=== PATIENT | female | born 1985 | race Caucasian/White ===

== ENCOUNTER 2024-10-11 23:30 | Observation (INO) | payer OTHER, SELFPAY ==
[2024-10-11 19:21] VITALS: BP 123/84
[2024-10-11 19:40] VITALS: BMI 28.7
[2024-10-11 19:46] VITALS: BP 140/98
[2024-10-11 19:46] LABS: Glucose - Point of Care 103 mg/dl (70-99)
[2024-10-11 19:55] LABS: % Eosinophils 1.6 % (0-6); % Immature Granulocytes 0.3 % (0-0.5); % Lymphocytes 25.2 % (20.5-51.1); % Monocytes 6.3 % (1.7-9.3); % Neutrophils 65.6 % (42.2-75.2); Absolute Basophils 0.1 10^3/uL (0-0.2); Absolute Eosinophils 0.2 10^3/uL (0-0.7); Absolute Lymphocytes 2.9 10^3/uL (1.2-3.4); Absolute Monocytes 0.7 10^3/uL (0.1-0.6); Absolute Neutrophils 7.6 10^3/uL (1.4-6.5); Hematocrit 43.3 % (37.0-47.0); Hemoglobin 14.4 g/dL (12.0-16.0); Mean Corp Hgb Conc. 33.3 g/dL (33.0-37.0); Mean Corpuscular Hgb 28.6 pg (27.0-31.0); Mean Corpuscular Volume 85.9 fL (81.0-99.0); Mean Platelet Volume 9.9 fL (7.4-10.4); Nucleated Red Blood Cells % 0 %; Platelet Count 346 10^3/uL (130-400); Red Blood Cell Count 5.04 10^6/uL (4.20-5.40); Red Cell Dist. Width 12.5 % (11.5-14.5); White Blood Cell Count 11.6 10^3/uL (4.8-10.8)
[2024-10-11 20:02] LABS: INR 0.92; PT 12.8 Sec (11.4-14.6)
[2024-10-11 20:07] LABS: ALT (SGPT) 22 U/L (0-35); AST (SGOT) 23 U/L (14-36); Albumin 4.7 g/dl (3.5-5.0); Alkaline Phosphatase 61 U/L (38-126); Blood Urea Nitrogen 11 mg/dl (7-17); Calcium 9.8 mg/dl (8.4-10.2); Carbon Dioxide 28 mmol/L (22-30); Chloride 101 mmol/L (98-107); Estimated Creatinine Clearance 119 ml/min; Glucose 111 mg/dl (70-99); Potassium 4.1 mmol/L (3.5-5.1); Sodium 136 mmol/L (135-145); Total Bilirubin 0.6 mg/dl (0.2-1.3); Total Protein 7.4 g/dl (6.3-8.2); eGFR > 60.00
[2024-10-11 20:17] LABS: Troponin I < 0.012 ng/ml
[2024-10-11 20:35] VITALS: BP 125/83
[2024-10-11 20:41] LABS: Urine Albumin Negative (Neg - Trace); Urine Bilirubin Negative (Negative); Urine Character Clear (Clear); Urine Color Yellow; Urine Glucose Negative (Negative); Urine Ketone Negative (Negative); Urine Leukocyte Trace (Negative); Urine Nitrite Negative (Negative); Urine Occult Blood Negative (Negative); Urine Specific Gravity 1.005 (<1.030); Urine Urobilinogen Negative (Neg - 1+)
[2024-10-11 20:50] LABS: Amphetamines Negative (Negative); Barbiturates Positive (Negative); Benzodiazepines Negative (Negative); Buprenorphine Negative (Negative); Cocaine Negative (Negative); Marijuana Negative (Negative); Methadone Negative (Negative); Methamphetamines Negative (Negative); Opiates Negative (Negative); Phencyclidine Negative (Negative); Tricyclic Antidepressants Negative (Negative)
[2024-10-11 20:59] LABS: Urine Red Blood Cell 0-2 /HPF (0-2); Urine Squamous Cell 21-25 /LPF (Few)
[2024-10-11 21:00] VITALS: BP 123/82
--- NOTE | 2024-10-11 21:01 | ED.CVA ---
History of Present Illness
General
Chief Complaint: CVA/TIA Symptoms
Time Seen by Provider: 10/11/24 19:54
Onset of Stroke Symptoms
Onset of symptoms known: No
Time pt last seen normal is known: No
History of Present Illness
History of Present Illness:
Patient is a 39-year-old woman presenting to the emergency department with weakness. On arrival patient was made a stroke alert. Patient is unable to provide clear history but states that 2 days ago she had some difficulty breathing and some
nausea and dizziness as well as some difficulty with concentration. Today around either 1 or 2 PM she had sudden onset of left arm and left leg weakness and numbness tingling. Has been ongoing. She does state that a few weeks ago her left leg had
weakness but that resolved. She does state that she is also been having chest pain and difficulty breathing. Per chart review patient was seen here in May 2023 for left-sided weakness had a stroke workup and ultimately was thought to have a
complex migraine. After my evaluation she denies any headache or pressure.
Past History
Past History
ED Past Medical History: None
ED Past Surgical History: None
Patient has exhibited threatening behavior?: No
Social History
Tobacco: Non-smoker
Phy Exam
Physical Exam
Physical Exam:
GENERAL: in no acute distress
HEENT: normocephalic, extraocular movements intact, moist oral mucosa
NECK: normal inspection
RESPIRATORY: no respiratory distress, clear to auscultation bilaterally
CARDIOVASCULAR: regular rate and rhythm
ABDOMEN/: soft, non-distended, non-tender to palpation, no rebound or guarding
EXTREMITIES: non-tender, no edema/swelling
NEUROLOGIC: alert and oriented x 3, cranial nerves II-XII intact, right upper extremity strength 5/5, left upper extremity strength 4/5, right lower extremity strength 5/5, left lower extremity strength 3/5, normal sensation to light touch, normal
[id number] and svan-yh-ezng, gait not tested formally
SKIN: warm
NIH Stroke Score
Level of Consciousness: 0 - Alert
LOC questions: 0-Answers both correctly
LOC Commands: 0-Performs both correctly
Best Gaze: 0-Normal
Visual [place]: 0=Normal, no visual loss
Facial palsy: 0=Normal, symmetrical
Motor - Right Arm: 0=No drift 10 seconds
Motor - Left Arm: 1=Drift < 10 seconds
Motor - Right Le-No drift 5 seconds
Motor - Left Le-Drift < 5 seconds
Limb Ataxia: 0-Absent
Sensation: 1-Mild loss
Best Language: 0-No aphasia
Dysarthria: 0-Normal
Extinction and Inattention: 0-No abnormality
Total Score:: 3
Course
Orders/Labs/Results
Orders:
Orders
10/11/24 19:32
Electrocardiogram (*1) Urgent
Reason for Study: Other
Other Reason for Exam: Possible Stroke
Bedside Glucose- Treatment ONCE
Cardiac Monitoring- Treatment ONCE
EKG- Treatment ONCE
IV Insert/Care/Rem.- Treatment PRN
Vital Signs As Directed
Frequency: Other
Weight As Directed
Frequency: Once
Comment: ZERO STRETCHER SCALE FOR ACCURATE WEIGHT
O2 Therapy [RESP] Urgent
Titrate/Wean O2 to maintain O2 sat greater than (%): 93
Special Instructions: MAINTAIN CONTINUOUS O2 SATS > OR = 93%
10/11/24 19:44
Complete Blood Count/With Diff Urgent
Comprehensive Metabolic Panel Urgent
PTT Urgent
Prothrombin Time Urgent
Troponin I Urgent
Urinalysis Reflex To Culture Urgent
Date Specimen was Collected: 10/11/24
Time Specimen was Collected: 19:32
Urine Microscopic Reflex Cult Urgent
10/11/24 19:54
CT HEAD STROKE ALERT W/o Cont Stat
Comment:
Reason For Exam: left weakness
CT HEAD/NECK ANG STROKE ALERT Stat
Comment:
Reason For Exam: left weakness
Chest/Abd Angio w/wo Contrast CT [CT Chest/abd Angio W/wo Iv Con] Stat
Comment:
Reason For Exam: chest pain, left sided weakness
10/11/24 20:36
Drug Screen, Urine [Urine Drug Abuse Screen] Urgent
Date Specimen was Collected: 10/11/24
Time Specimen was Collected: 20:12
Abnormal Lab Results
10/11/24 10/11/24
19:44 20:36
WBC 11.6 H 10^3/uL
(4.8-10.8)
Absolute Neuts (auto) 7.6 H 10^3/uL
(1.4-6.5)
Absolute Monos (auto) 0.7 H 10^3/uL
(0.1-0.6)
Glucose 111 H mg/dl
(70-99)
Leukocyte Esterase Rfl Trace A
(Negative)
Ur Barbiturates Screen Positive H
(Negative)
POC Glucose 103 H mg/dl
(70-99)
10/11/24 19:44
10/11/24 19:44
Vital Signs
Initial and Last Documented VS:
Initial Vital Signs
Temp Pulse Resp BP Pulse Ox
98.9 F 84 20 123/84 99
10/11/24 19:21 10/11/24 19:21 10/11/24 19:21 10/11/24 19:21 10/11/24 19:21
Last Documented Vital Signs
Temp Pulse Resp BP Pulse Ox
98.9 F 90 20 123/82 97
10/11/24 19:21 10/11/24 21:00 10/11/24 19:21 10/11/24 21:00 10/11/24 21:00
MDM/Problems Addressed
Differential Diagnosis Includes:
Patient is a 39-year-old woman presenting to the emergency department left-sided weakness as well as chest pain and shortness of breath. On exam here patient with slight drift in left upper and lower extremity. Concern for stroke versus aortic
dissection given the ongoing chest pain. Consider complex migraine the patient without any headache symptoms. Will proceed with stroke alert scans as well as dissection protocol. Will check blood work. I discussed with on-call neurology Dr. Callahan
who also recommended adding UDS possible consideration for multiple sclerosis as well given the waxing and waning symptoms over a period of time.
*Critical Care Note
Total Time (30-74mins, 75-104mins- exclusive of procedures): Not Applicable
Update Note
Update Note:
On reevaluation patient is ambulatory to the bathroom however stating that she has some residual left upper extremity weakness. Her chest pain has resolved. Blood work is unremarkable. CT scan with no acute changes. Patient would benefit from
admission for further evaluation. Discussed with hospitalist who excepted patient to their service
ED Attending Note
-
Portions of this chart may have been created with voice recognition software.� Occasional wrong word or��sound alike� substitutions may have occurred due to the inherent limitations of voice recognition software.
Discharge Plan
Departure
Patient Disposition: Admit
Date of Disposition: 10/11/24
Time of Disposition: 22:21
Presentation/result/management discussed w/ accepting MD/DO: Hospitalist
Discharge Problem:
Acute left-sided weakness
Prescriptions:
No Action
budesonide-formoterol [Symbicort] 160-4.5 mcg/actuation Hfa Aerosol Inhaler
2 inh inhalation R BIDPRN PRN (Reason: sob) Qty: 0
desogestrel-ethinyl estradiol [Apri] 0.15-0.03 mg Tablet
1 tab PO HS
cetirizine 10 mg Tablet
10 mg PO DAILYPRN PRN (Reason: allergies)
olopatadine 0.1 % Drops
1 drp BOTH EYES BIDPRN PRN (Reason: allergies)
albuterol sulfate 90 mcg/actuation Hfa Aerosol Inhaler
2 puff INHALATION R Q6HPRN PRN (Reason: sob)
ipratropium bromide 42 mcg (0.06 %) [place],Non-Aerosol
2 spray INTRANASAL TIDPRN PRN (Reason: allergies)
fluticasone propionate [Flonase] 50 mcg/actuation [place],Suspension
2 spray INTRANASAL BIDPRN PRN (Reason: allergies)
Referrals:
Kaden Ragsdale CRNP [Family Provider] -
Interventions
Interventions:
*General Assessment Last Done: 10/11/24 19:21
ED- Fall Risk Assessment Last Done: 10/11/24 19:21
*ED COVID-19 Vaccine History Last Done: 10/11/24 19:21
ED- Cardiac Assessment Last Done: 10/11/24 19:49
ED- Neurological Assessment Last Done: 10/11/24 19:49
ED- Pulmonary Assessment Last Done: 10/11/24 19:49
Discharge Date and Time
Print Language: UZBEK
[2024-10-11 22:00] VITALS: BP 121/81
--- NOTE | 2024-10-11 22:26 | HPS.HSE ---
Family Physician
-
Family Physician: LIOR Tavares
Chief Complaint
-
CVA/TIA symptoms
History of Present Illness
Patient is a 39-year-old female with past medical history significant for asthma who presented to [facility] ED for evaluation of acute onset left sided weakness with numbness today. Patient reports having left sided weakness associated with
'tingling' in left arm and left leg. She also states she has had intermittent shortness of breath when lying down and believes that is from her asthma. She does states she has had dizziness but unable to confirm or deny if associated with left-side
weakness and numbness. Patient reports an episode of nausea earlier today. Denies any chest pain, cough, emesis, fever or chills.
Medical History
Past Medical History
Past Medical History: Reports Other
Additional Past Medical History:
asthma
allergic rhinitis
Past Surgical History: Reports Other
Additional Past Surgical History:
teeth implants (08/2024)
rhinoplasty (03/2024)
Social History
Tobacco: Non-smoker
Alcohol: None
Drug: None
Living: With Family
Employment: Employed
Family History
Family History: Not pertinent
Allergies / Home Medications
Allergies reflects when Allergies were last updated in [facility].
Home Medications with original date entered in [facility]
Allergy/Medication List:
Allergies
Allergy/AdvReac Type Severity Reaction Status Date / Time
Dawes [employer]ivatives Allergy Anaphylaxis Verified 10/11/24 19:42
seeds Allergy Anaphylaxis Uncoded 10/11/24 19:42
Home Medications
budesonide-formoterol HFA 160 mcg-4.5 mcg/actuation aerosol inhaler (Symbicort) 2 inh inhalation R BIDPRN PRN sob ##0 05/30/23
albuterol sulfate 90 mcg/actuation aerosol inhaler 2 puff inhalation R Q6HPRN PRN sob 10/11/24
cetirizine 10 mg tablet 10 mg PO DAILYPRN PRN allergies 10/11/24
desogestrel 0.15 mg-ethinyl estradiol 0.03 mg tablet (Apri) 1 tab PO HS 10/11/24
fluticasone propionate 50 mcg/actuation nasal spray,suspension 2 spray intranasal BIDPRN PRN allergies 10/11/24
ipratropium bromide 42 mcg (0.06 %) nasal spray 2 spray intranasal TIDPRN PRN allergies 10/11/24
olopatadine 0.1 % eye drops 1 drp BOTH EYES BIDPRN PRN allergies 10/11/24
Review of Systems
-
History Source: Patient
Constitutional: Reports No Symptoms
EENT: Reports No Symptoms
Respiratory: Reports Other (intermittent shortness of breath)
Cardiac: Reports No Symptoms
Abdomen/GI: Reports No Symptoms
: Reports No Symptoms
Musculoskeletal: Reports No Symptoms
Skin: Reports No Symptoms
Neurological: Reports Dizzy, Weakness (left side) and Numbness (left side )
Endocrine: Reports No Symptoms
Hematologic/Lymphatic: Reports No Symptoms
Psych: Reports No Symptoms
Physical Exam
Vital Signs
Vital Signs
Temp Pulse Resp BP Pulse Ox
98.9 F 90 20 123/82 97
10/11/24 19:21 10/11/24 21:00 10/11/24 19:21 10/11/24 21:00 10/11/24 21:00
Physical Exam
General: Well Developed, Well Nourished, No Apparent Distress, Comfortable and Conversant
HEENT: NormoCephalic, Moist mucous membranes, Atraumatic, PERRLA, [place] Conjunctivae, Nose Appears Normal and Ears Appear Normal
Respiratory: Clear and Non Labored Respirations
Cardiac: S1/S2 and Regular Rhythm; No Murmur, Rub or Gallop
Breast: Deferred by me
GI: Soft, Non Tender, Non Distended and Normal Bowel Sounds; No Organomegaly
Rectal: Deferred by Provider
Genito-urinary: Deferred by me
Musculoskeletal: No Clubbing, No Cyanosis and No Edema
Skin: Warm and IV/Catheter Site; No Rash
Neuro: Awake, Alert, AO x 3 and Nonfocal/grossly intact
Hematologic/Lymphatic: No Lymphadenopathy
Psych: Calm
Laboratory Results
-
10/11/24 19:44
10/11/24 19:44
Laboratory Results
PT 12.8 Sec (11.4-14.6) 10/11/24 19:44
INR 0.92 10/11/24 19:44
APTT 28.0 Sec (23.4-35.0) 10/11/24 19:44
Total Bilirubin 0.6 mg/dl (0.2-1.3) 10/11/24 19:44
AST 23 U/L (14-36) 10/11/24 19:44
ALT 22 U/L (0-35) 10/11/24 19:44
Alkaline Phosphatase 61 U/L (38-126) 10/11/24 19:44
Troponin I < 0.012 ng/ml 10/11/24 19:44
Data Reviewed
-
CT Scan: Report Reviewed by me (Head CT, Head/Neck CTA and Chest/Adb CTA)
Medical Tests (Nuc Med, Echo, EKG etc): Report Reviewed by me (EKG: NORMAL SINUS RHYTHM)
Lab Data: Labs Reviewed by me
Impression/Plan
-
IMPRESSION/PLAN:
#CVA/TIA symptoms: Left sided weakness and numbness associated with dizziness
Headt CT: Unremarkable unenhanced head CT exam
ASPECT score: 10
Head/Neck CTA: No acute pathology identified. No evidence of M1 nor M2 occlusion. No focal stenosis.
Chest/Abd: No acute pathology of the chest and abdomen identified. No evidence of aortic dissection
Hepatic fatty infiltration.
Mild right middle lobe atelectasis versus scarring.
UDS positive for barbiturates, patient denies any recreational drug use
- Admit to telemetry for observation
- Neuro Consult
- MRI
- NIH and nuerochecks
#Asthma
#Allergic Rhinitis
- Continue home medications
Code Status: Full Code
DVT Prophylaxis: SCDs
[2024-10-11 23:00] VITALS: BP 112/92
--- NOTE | 2024-10-11 23:00 | W.PN.UPDATE ---
Update Note
Progress Note Update
This is an addendum to the H&P written by Sonia Claudio on 10/11/2024. Patient seen and examined independently with [employer].
39-year-old Macedonian-speaking female past medical history of complicated migraine, mild asthma, presenting with weakness. 2 days ago she had difficulty breathing with nausea, dizziness and difficulty with concentration. Today sudden onset of left
arm and left leg weakness and numbness and tingling. Also with chest pain/shortness of breath.
Patient was admitted in May 2023 for similar symptoms of left-sided weakness/stroke workup was thought to have been a complex migraine.
EKG shows normal sinus rhythm. CT head negative. CTA head and neck shows no acute pathology. Chest abdomen angio shows no acute pathology of the chest and abdomen and no evidence of aortic dissection.
Labs show leukocytosis. Urinalysis unremarkable.
NIH score of 3.
History is obtained from patient's son.
Unclear etiology of symptoms. UDS positive for barbiturates although patient denies any drug use. Could be complex migraine versus CVA versus conversion disorder. Check MRI brain. Neurology consulted.
[2024-10-12] VITALS: BP 102/63
--- NOTE | 2024-10-12 01:21 | W.PN.UPDATE ---
Update Note
Progress Note Update
Notified by ED staff patient would like to leave AMA since we are unable to provide her with a private room. Son arrived and she gave him permission to sign the AMA form. Copy given to them.
== END 2024-10-12 01:50 | disposition left against medical advice (07) ==
LOC: ED 23:30
PROVIDERS: Emergency Medicine; ADMITTING PHYSICIAN Hospitalist; EMERGENCY PHYSICIAN Student in an Organized Health Care Education/Training Program; FAMILY PHYSICIAN Nurse Practitioner Adult Health
DX: R53.1 Weakness (principal); R06.02 Shortness of breath; R11.0 Nausea; R42 Dizziness and giddiness; R20.0 Anesthesia of skin; J98.11 Atelectasis; R20.2 Paresthesia of skin; R07.9 Chest pain, unspecified; J45.909 Unspecified asthma, uncomplicated; K76.0 Fatty (change of) liver, not elsewhere classified; Z79.51 Long term (current) use of inhaled steroids; Z60.3 Acculturation difficulty; Z53.29 Procedure and treatment not carried out because of patient's decision for other reasons
CPT/HCPCS: 70450; 70496; 70498; 71275; 74175; 80053; 80306; 81003; 81015; 82962; 84484; 85025; 85610; 85730; 93005; 99285; Q9967

== ENCOUNTER 2024-11-20 09:05 | Emergency (ER) | payer OTHER, SELFPAY ==
[2024-11-20 09:13] VITALS: BP 159/104
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
[2024-11-20 09:55] VITALS: BMI 26.8
[2024-11-20] MEDS: TYLENOL 1000 MG PO (10:17)
[2024-11-20] MEDS: ZOFRAN ODT (ORALLY DISINTEGRATING) 4 MG PO (10:17)
[2024-11-20 10:55] VITALS: BP 143/96
== END 2024-11-20 11:50 | disposition home or self-care (01) ==
LOC: EMR 09:05
PROVIDERS: EMERGENCY PHYSICIAN Emergency Medicine; FAMILY PHYSICIAN Internal Medicine
DX: S09.90XA Unspecified injury of head, initial encounter (principal); S80.12XA Contusion of left lower leg, initial encounter; V43.52XA Car driver injured in collision with other type car in traffic accident, initial encounter; J45.909 Unspecified asthma, uncomplicated
CPT/HCPCS: 99285; 70450; 73030; 73552; 73590

== ENCOUNTER 2024-11-28 08:56 | Emergency (ER) | payer OTHER, SELFPAY ==
[2024-11-28] VITALS (8 sets, daily range): BP systolic 121–140; BP diastolic 74–99
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
[2024-11-28 12:02] LABS: % Basophils 0.7 % (0-2); % Eosinophils 1.2 % (0-6); % Immature Granulocytes 0.3 % (0-0.5); % Lymphocytes 22.6 % (20.5-51.1); % Monocytes 5.8 % (1.7-9.3); % Neutrophils 69.4 % (42.2-75.2); Absolute Basophils 0.1 10^3/uL (0-0.2); Absolute Eosinophils 0.1 10^3/uL (0-0.7); Absolute Lymphocytes 2.1 10^3/uL (1.2-3.4); Absolute Monocytes 0.5 10^3/uL (0.1-0.6); Absolute Neutrophils 6.5 10^3/uL (1.4-6.5); Hematocrit 41.8 % (37.0-47.0); Hemoglobin 14.1 g/dL (12.0-16.0); Mean Corp Hgb Conc. 33.7 g/dL (33.0-37.0); Mean Corpuscular Hgb 28.4 pg (27.0-31.0); Mean Corpuscular Volume 84.3 fL (81.0-99.0); Mean Platelet Volume 8.8 fL (7.4-10.4); Nucleated Red Blood Cells % 0 %; Platelet Count 352 10^3/uL (130-400); Red Blood Cell Count 4.96 10^6/uL (4.20-5.40); Red Cell Dist. Width 12.4 % (11.5-14.5); White Blood Cell Count 9.4 10^3/uL (4.8-10.8)
[2024-11-28 12:20] LABS: ALT (SGPT) 21 U/L (0-35); AST (SGOT) 21 U/L (14-36); Alkaline Phosphatase 63 U/L (38-126); Blood Urea Nitrogen 9 mg/dl (7-17); Calcium 9.2 mg/dl (8.4-10.2); Carbon Dioxide 28 mmol/L (22-30); Chloride 103 mmol/L (98-107); Glucose 116 mg/dl (70-99); Sodium 138 mmol/L (135-145); Total Bilirubin 1.1 mg/dl (0.2-1.3); Total Protein 6.7 g/dl (6.3-8.2); eGFR > 60.00
[2024-11-28 12:42] LABS: HCG, Serum Qualitative Screen Negative
[2024-11-28] MEDS: TORADOL 30 MG IV (14:25)
== END 2024-11-28 15:25 | disposition home or self-care (01) ==
LOC: EMR 08:56
PROVIDERS: EMERGENCY PHYSICIAN Student in an Organized Health Care Education/Training Program; FAMILY PHYSICIAN Internal Medicine
DX: G43.109 Migraine with aura, not intractable, without status migrainosus (principal); Z86.73 Personal history of transient ischemic attack (TIA), and cerebral infarction without residual deficits
CPT/HCPCS: 99284; 96374; 70496; 70498; 72125; 80053; 84703; 85025; 93005; Q9967

== ENCOUNTER 2024-12-19 13:39 | Emergency (ER) | payer OTHER, SELFPAY ==
[2024-12-19 13:41] VITALS: BP 137/89
[2024-12-19 14:07] VITALS: BMI 26.7
[2024-12-19] MEDS: NSS 1000 IV (14:26)
[2024-12-19] MEDS: COMPAZINE 10 MG IV (14:26)
[2024-12-19] MEDS: BENADRYL 25 MG IV (14:26)
[2024-12-19] MEDS: TORADOL 15 MG IV (14:27)
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
[2024-12-19 15:00] VITALS: BP 123/97
[2024-12-19 16:00] VITALS: BP 133/96
[2024-12-19] MEDS: DECADRON 10 MG IV (16:52)
[2024-12-19 18:00] VITALS: BP 142/90
== END 2024-12-19 18:21 | disposition home or self-care (01) ==
LOC: EMR 13:39
PROVIDERS: EMERGENCY PHYSICIAN Emergency Medicine; FAMILY PHYSICIAN Family Medicine
DX: G43.909 Migraine, unspecified, not intractable, without status migrainosus (principal)
CPT/HCPCS: 96374; 96375; 96361; 99284

== ENCOUNTER → 2025-07-03 08:18 | Outpatient (REF) | payer OTHER, SELFPAY | LOC: HWRCS 08:18 | PROVIDERS: ATTENDING PHYSICIAN Internal Medicine Cardiovascular Disease; FAMILY PHYSICIAN Family Medicine | DX: R00.2 Palpitations (principal) | CPT/HCPCS: 93306 ==